=== PATIENT | female | born 1990 | race African-American/Black ===

== ENCOUNTER 2016-11-27 13:43 | Emergency (ER) | payer OTHER ==
[~2016-11-27] VITALS: Ht 175.3 cm; Wt 104.3 kg
== END 2016-11-27 15:35 | disposition home or self-care (01) ==
LOC: CFTX 13:43 → CED 13:43 → CFTX 15:20
DX: S02.5XXA Fracture of tooth (traumatic), initial encounter for closed fracture (principal); S00.531A Contusion of lip, initial encounter; F17.210 Nicotine dependence, cigarettes, uncomplicated; Y08.89XA Assault by other specified means, initial encounter; Y92.410 Unspecified street and highway as the place of occurrence of the external cause
CPT/HCPCS: 99283